=== PATIENT | male | born 1975 | race American Indian/Alaskan Native ===

== ENCOUNTER 2017-10-19 15:56 | Emergency (ER) | payer OTHER, MEDICAID ==
[2017-10-19 16:07] VITALS: BP 128/71; PULSE 62; RESP 16; TEMP 97.8; O2SAT 98
[2017-10-19] MEDS ORDERED: TDAP Vaccine 0.5 mL Syr IM ONE (16:22)
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
== END 2017-10-19 17:00 | disposition home or self-care (01) ==
LOC: ED 15:56
DX: S29.012A Strain of muscle and tendon of back wall of thorax, initial encounter (principal); S46.911A Strain of unspecified muscle, fascia and tendon at shoulder and upper arm level, right arm, initial encounter; V49.9XXA Car occupant (driver) (passenger) injured in unspecified traffic accident, initial encounter; Z23 Encounter for immunization

== ENCOUNTER 2018-11-09 19:19 | Emergency (ER) | payer SELFPAY ==
[2018-11-09 20:39] VITALS: BMI 28.8
[2018-11-09 20:43] VITALS: BP 113/74; PULSE 81; RESP 18; TEMP 98.5; O2SAT 98
--- NOTE | 2018-11-09 21:17 | ED PDOC ---
Arrival/HPI - General Chief Complaint: Male Genitourinary Time Seen by Provider: 11/09/18 21:01 Historian: Patient - History of Present Illness Narrative History of Present Illness (Text): 11/09/18 21:16 Lorne Collins is a 43 year old male, with no significant past medical history, who presents to the emergency department complaining of hematuria. Patient states he had an episode of hematuria earlier tonight. Patient states he had experienced similar symptoms 2 weeks prior, but it resolved on its own and symptoms are worse tonight. Patient denies any trauma/injury, dysuria, flank pain, abdominal pain, nausea, vomiting, diarrhea, or any other complaints. Symptom Onset: Gradual Symptom Course: Unchanged Activities at Onset: Light Context: Home Past Medical History - Provider Review Nursing Documentation Reviewed: Yes - Infectious Disease Hx of Infectious Diseases: None - Psychiatric Hx Psychophysiologic Disorder: No Hx Substance Use: No Family/Social History - Physician Review Nursing Documentation Reviewed: Yes Family/Social History: Unknown Family HX Smoking Status: Never Smoked Hx Alcohol Use: No Hx Substance Use: No Allergies/Home Meds Allergies/Adverse Reactions: Allergies shellfish derived Allergy (Verified 11/09/18 20:38) SWELLING Review of Systems - Physician Review All systems were reviewed & negative as marked: Yes - Review of Systems Constitutional: Normal. absent: Fevers Eyes: Normal ENT: Normal Respiratory: Normal. absent: SOB, Cough Cardiovascular: Normal. absent: Chest Pain Gastrointestinal: Normal. absent: Abdominal Pain, Diarrhea, Nausea, Vomiting Genitourinary Male: Hematuria. absent: Dysuria, Urinary Output Changes Musculoskeletal: Normal. absent: Back Pain, Neck Pain Skin: Normal. absent: Rash Neurological: Normal. absent: Headache, Dizziness Endocrine: Normal Hemo/Lymphatic: Normal Psychiatric: Normal Physical Exam Vital Signs Reviewed: Yes Vital Signs Temp Pulse Resp BP Pulse Ox 11/09/18 20:39 98.5 F 81 18 113/74 98 Temperature: Afebrile Blood Pressure: Normal Pulse: Regular Respiratory Rate: Normal Appearance: Positive for: Well-Appearing, Non-Toxic, Comfortable Pain Distress: None Mental Status: Positive for: Alert and Oriented X 3 - Systems Exam Head: Present: Atraumatic, Normocephalic Pupils: Present: PERRL Extroacular Muscles: Present: EOMI Conjunctiva: Present: Normal Mouth: Present: Moist Mucous Membranes Neck: Present: Normal Range of Motion Respiratory/Chest: Present: Clear to Auscultation, Good Air Exchange. No: Resp iratory Distress, Accessory Muscle Use Cardiovascular: Present: Regular Rate and Rhythm, Normal S1, S2. No: Murmurs Abdomen: No: Tenderness, Distention, Peritoneal Signs Back: Present: Normal Inspection Upper Extremity: Present: Normal Inspection. No: Cyanosis, Edema Lower Extremity: Present: Normal Inspection. No: Edema Neurological: Present: GCS=15, CN II-XII Intact, Speech Normal Skin: Present: Warm, Dry, Normal Color. No: Rashes Psychiatric: Present: Alert, Oriented x 3, Normal Insight, Normal Concentration Medical Decision Making ED Course and Treatment: 11/09/18 21:16 Impression: 43 year old male complaining of hematuria. Plan: -- UA, urine cultures -- Bladder scan -- Reassess and disposition Prior Visits: Notes and results from previous visits were reviewed. Progress Notes: 11/09/18 22:37 Patient is stable for discharge. Patient was instructed to follow up with Dr. Lara, urologist, or clinic in 1-2 days or return if symptoms persist/worsen or new concerning symptoms arise. - Scribe Statement The provider has reviewed the documentation as recorded by the Toña Ann Provider Scribe Attestation: All medical record entries made by the Scribe were at my direction and personally dictated by me. I have reviewed the chart and agree that the record accurately reflects my personal performance of the history, physical exam, medical decision making, and the department course for this patient. I have also personally directed, reviewed, and agree with the discharge instructions and disposition. Disposition/Present on Arrival - Present on Arrival History of DVT/PE: No History of Uncontrolled Diabetes: No Urinary Catheter: No History of Decub. Ulcer: No History Surgical Site Infection Following: None - Disposition Diagnosis: Urinary tract infection Disposition: HOME/ ROUTINE Patient Problems: Current Active Problems Problem Status Onset Urinary tract infection Acute Discharge Instructions (ExitCare): Urinary Tract Infections in Adults Prescriptions: Cephalexin [Keflex] 500 mg PO BID #14 capsule Referrals: PCPNO [Primary Care Provider] - Follow up with primary Sanjeev Lara MD [Staff Provider] - Follow up with primary Forms: [employer] (Cymro)
[2018-11-09 21:38] LABS: URINE BILIRUBIN NEGATIVE (NEGATIVE); URINE BLOOD LARGE (NEGATIVE); URINE GLUCOSE (UA) NEGATIVE (NEGATIVE); URINE LEUKOCYTE ESTERASE MODERATE Leu/uL (NEGATIVE); URINE PROTEIN NEGATIVE mg/dL (<30 mg/dL); URINE UROBILINOGEN 0.2 E.U./dL (<1 E.U./dL)
[2018-11-09 21:42] LABS: URINE APPEARANCE SL CLOUDY (CLEAR); URINE COLOR YELLOW (YELLOW)
[2018-11-09] MEDS ORDERED: cefTRIAXone (Rocephin) 250 mg Inj IM STA (22:15)
[2018-11-09 22:34] LABS: URINE BACTERIA SMALL /hpf; URINE EPITHELIAL CELLS 0 - 2 /hpf (0-5); URINE RBC TNTC /hpf (0-2)
== END 2018-11-09 23:13 | disposition home or self-care (01) ==
LOC: ED 19:19
DX: N39.0 Urinary tract infection, site not specified (principal)
CPT/HCPCS: 81001; 87491; 87591; 96372; 99283; J0696

== ENCOUNTER 2018-11-18 23:49 | Emergency (ER) | payer SELFPAY ==
[2018-11-19 00:12] VITALS: BMI 29.5
[2018-11-19 00:16] VITALS: O2SAT 98
[2018-11-19] MEDS ORDERED: Alum-Mag Hydrox-Simethicone Susp (30 mL) PO STA (01:01)
--- NOTE | 2018-11-19 01:21 | ED PDOC ---
Arrival/HPI - General Chief Complaint: Abdominal Pain Time Seen by Provider: 11/19/18 00:47 Historian: Patient - History of Present Illness Narrative History of Present Illness (Text): 11/19/18 01:01 43 year old male, with no significant past medical history, presents to the emergency department complaining of watery diarrhea, abdominal cramping, and heart burn after eating a steak today. Patient reports the symptoms immediately began after eating the steak. Patient took Pepto Bismol and Tums with no relief. Patient denies any fever, chills, chest pain, shortness of breath, nausea, vomiting, urinary symptoms, back pain, neck pain, headache, dizziness, or any other complaints. Symptom Onset: Sudden Symptom Course: Unchanged Activities at Onset: Light Context: Home Past Medical History - Provider Review Nursing Documentation Reviewed: Yes - Infectious Disease Hx of Infectious Diseases: None - Psychiatric Hx Psychophysiologic Disorder: No Hx Substance Use: No - Anesthesia Hx Anesthesia: No Family/Social History - Physician Review Nursing Documentation Reviewed: Yes Family/Social History: No Known Family HX Smoking Status: Never Smoked Hx Alcohol Use: No Hx Substance Use: No Allergies/Home Meds Allergies/Adverse Reactions: Allergies shellfish derived Allergy (Verified 11/18/18 23:59) SWELLING Review of Systems - Physician Review All systems were reviewed & negative as marked: Yes - Review of Systems Constitutional: absent: Fevers, Other (Chills) Respiratory: absent: SOB Cardiovascular: absent: Chest Pain Gastrointestinal: Abdominal Pain, Diarrhea. absent: Nausea, Vomiting Genitourinary Male: absent: Dysuria, Frequency, Hematuria Musculoskeletal: absent: Back Pain, Neck Pain Neurological: absent: Headache, Dizziness Physical Exam Vital Signs Reviewed: Yes Vital Signs Pulse Resp BP Pulse Ox 11/19/18 00:12 82 18 145/98 H 98 Temperature: Afebrile Blood Pressure: Hypertensive Pulse: Regular Respiratory Rate: Normal Appearance: Positive for: Well-Appearing, Non-Toxic, Comfortable Pain Distress: None Mental Status: Positive for: Alert and Oriented X 3 - Systems Exam Head: Present: Atraumatic, Normocephalic Pupils: Present: PERRL Extroacular Muscles: Present: EOMI Conjunctiva: Present: Normal Mouth: Present: Moist Mucous Membranes Neck: Present: Normal Range of Motion Respiratory/Chest: Present: Clear to Auscultation, Good Air Exchange. No: Respiratory Distress, Accessory Muscle Use Cardiovascular: Present: Regular Rate and Rhythm, Normal S1, S2. No: Murmurs Abdomen: Present: Tenderness (suprapubic). No: Distention, Peritoneal Signs Back: Present: Normal Inspection Upper Extremity: Present: Normal Inspection. No: Cyanosis, Edema Lower Extremity: Present: Normal Inspection. No: Edema Neurological: Present: GCS=15, CN II-XII Intact, Speech Normal Skin: Present: Warm, Dry, Normal Color. No: Rashes Psychiatric: Present: Alert, Oriented x 3, Normal Insight, Normal Concentration Medical Decision Making ED Course and Treatment: 11/19/18 01:00 Impression: 43 year old male presents complaining of diarrhea, abdominal cramping, and heart burning after eating a steak. Plan: -- Bentyl, Lidocaine 2% Viscous, Maalox, Pepcid -- Reassess and disposition Progress Notes: On re-eval, patient reports improvement in symptoms. Stable for discharge home. - Medication Orders Current Medication Orders: Dicyclomine HCl (Bentyl) 10 mg PO QID SARAH Discontinued Medications Al Hydrox/Mg Hydrox/Simethicone (Maalox Plus 30 Ml) 30 ml PO STAT STA Stop: 11/19/18 01:02 Famotidine (Pepcid) 20 mg PO STAT STA Stop: 11/19/18 01:03 Lidocaine HCl (Lidocaine 2% Viscous) 15 ml PO ONCE ONE Stop: 11/19/18 01:02 - Scribe Statement The provider has reviewed the documentation as recorded by the Toña Simmons Provider Scribe Attestation: All medical record entries made by the Toña were at my direction and personally dictated by me. I have reviewed the chart and agree that the record accurately reflects my personal performance of the history, physical exam, medical decision making, and the department course for this patient. I have also personally directed, reviewed, and agree with the discharge instructions and disposition. Disposition/Present on Arrival - Present on Arrival Any Indicators Present on Arrival: No History of DVT/PE: No History of Uncontrolled Diabetes: No Urinary Catheter: No History of Decub. Ulcer: No History Surgical Site Infection Following: None - Disposition Have Diagnosis and Disposition been Completed?: Yes Diagnosis: Food poisoning Disposition: HOME/ ROUTINE Disposition Time: 03:00 Condition: STABLE Discharge Instructions (ExitCare): Food Poisoning (DC) Additional Instructions: JOE SRIVASTAVA, thank you for letting us take care of you today. Your provider was Camila Mcduffie MD and you were treated for STOMACH PAIN. The emergency medical care you received today was directed at your acute symptoms. If you were prescribed any medication, please fill it and take as directed. It may take several days for your symptoms to resolve. Return to the Emergency Department if your symptoms worsen, do not improve, or if you have any other problems. Please contact your doctor or call one of the physicians/clinics you have been referred to that are listed on the Patient Visit Information form that is in cluded in your discharge packet. Bring any paperwork you were given at discharge with you along with any medications you are taking to your follow up visit. Our treatment cannot replace ongoing medical care by a primary care provider outside of the emergency department. Thank you for allowing the [facility] team to be part of your care today. If you had an X-Ray or CT scan: A Radiologist will review the ED reading if any change in treatment is needed we will contact you. If you had a blood, urine, or wound culture: It will take several days for the results, if any change in treatment is needed we will contact you. If you had an STI test: It will take 48 hours for the results. Please call after 1 week if you have not heard back. Forms: [employer] (Kosovan)
[2018-11-19 03:52] VITALS: BP 128/85; PULSE 90; RESP 20; TEMP 99.6
== END 2018-11-19 03:30 | disposition home or self-care (01) ==
LOC: ED 23:49
DX: T62.91XA Toxic effect of unspecified noxious substance eaten as food, accidental (unintentional), initial encounter (principal); R10.9 Unspecified abdominal pain; R19.7 Diarrhea, unspecified